=== PATIENT | male | born 1950 | race Caucasian/White ===

== ENCOUNTER → 2022-07-05 15:34 | Outpatient (CLI) | payer OTHER, SELFPAY ==
--- NOTE | 2022-07-05 15:37 | DI.RAD.S_ITS ---
PROCEDURE: XR CHEST 2V INDICATIONS: Cough and SOB TECHNIQUE: 2 views of the chest were acquired. COMPARISON: None. FINDINGS: Surgical changes and devices: None. Lungs and pleura: Lungs are clear. No pleural effusions or pneumothorax. Mediastinum: Mediastinal contours are normal. Heart size is normal. Bones and chest wall: No suspicious bony abnormalities. Soft tissues appear unremarkable. IMPRESSION: No acute cardiopulmonary findings. Dictated by: Mariela Carlton M.D. on 07/05/2022 at 16:22 Approved by: Mariela Carlton M.D. on 07/05/2022 at 16:23
== END ==
PROVIDERS: Referring Provider Registered Nurse; Visit Provider Registered Nurse
DX: R06.02 Shortness of breath (principal)
CPT/HCPCS: 71046